=== PATIENT | female | born 2000 | race Two or more races ===

== ENCOUNTER 2023-02-23 15:40 | Inpatient (IN) | payer OTHER, SELFPAY ==
[~2023-02-23] VITALS: Ht 170.2 cm; Wt 83.6 kg
[2023-02-23] VITALS (7 sets, daily range): BP systolic 107–133; BP diastolic 51–72; O2SAT 97
[~2023-02-23 15:40] MED LIST: PRENATAL VITAMINS CHEWABLE TABLET PO SCH
[2023-02-23] MEDS ORDERED: TRANEXAMIC ACID INJection 1,000 MG in NS 100 ML IV PRN (16:20)
[2023-02-23] MEDS ORDERED: LIDOCAINE 1% MDV 20ML VIAL INFIL PRN (16:20)
[2023-02-23] MEDS ORDERED: OXYTOCIN DRIP 30 UNITS in IV 1 EA IV PRN ×4 (16:20)
[2023-02-23] MEDS ORDERED: METHYLERGONOVINE MALEATE 0.2MG/ML 1ML VIAL IM PRN (16:20)
[2023-02-23] MEDS ORDERED: PRENTAB9 PO (16:41)
[2023-02-23] MEDS ORDERED: OMEG10002 PO (16:41)
[2023-02-23] MEDS ORDERED: AZITHROMYCIN 250MG TABLET PO ONE (16:45)
[2023-02-23] MEDS ORDERED: HOME MED LIST COMPLETE! XX SCH (16:50)
[2023-02-23] MEDS ORDERED: BETAMETHASONE SOLUSPAN 6MG/ML 5ML VIAL IM SCH (17:00)
[2023-02-23] MEDS: AMPICILLIN SOD 2 GM in D5W MINI-BAG PLUS 100 ML IV SCH ×2 (17:58→23:44)
[2023-02-23] MEDS ORDERED: NIFEdipine 10 MG CAP PO SCH (18:00)
[2023-02-23] MEDS: LR 1,000 ML IV SCH ×2 (19:51→23:44)
[2023-02-23 19:54] LABS: HEMATOCRIT 33.6 % (36.0-47.0); HEMOGLOBIN 11.4 g/dl (12.0-15.5); MEAN CORPUSCULAR HEMOGLOBIN 32.5 pg (27.0-33.0); MEAN CORPUSCULAR HGB CONC 33.9 g/dl (32.0-36.5); MEAN CORPUSCULAR VOLUME 95.7 fl (80.0-96.0); PLATELET COUNT, AUTOMATED 147 10^3/uL (150-450); RED BLOOD COUNT 3.51 10^6/uL (4.00-5.40); WHITE BLOOD COUNT 9.7 10^3/uL (4.0-10.0)
[2023-02-23] MEDS: NIFEdipine 10 MG CAP PO SCH (21:20)
[2023-02-24] VITALS (14 sets, daily range): BP systolic 96–122; BP diastolic 51–71; O2SAT 93–100
[2023-02-24] MEDS: NIFEdipine 10 MG CAP PO SCH ×2 (02:05→05:52)
[2023-02-24] MEDS: LR 1,000 ML IV SCH (05:19)
[2023-02-24] MEDS: AMPICILLIN SOD 2 GM in D5W MINI-BAG PLUS 100 ML IV SCH (05:50)
[2023-02-24] MEDS ORDERED: BICITRA 30ML SOLN UDC PO ONE (07:00)
[2023-02-24] MEDS ORDERED: AZITHROMYCIN INJ 500 MG, VIAL MATE ADAPTER 1 EACH in NS 250 ML IV ONE (07:00)
[2023-02-24] MEDS ORDERED: ceFAZolin SOD 2 GM in IV 1 EA IV ONE (07:00)
[2023-02-24] MEDS ORDERED: MORPHINE PRES-FREE INJ 10 MG/10 ML VIAL As Ordered ONE (07:15)
[2023-02-24] MEDS ORDERED: OXYTOCIN 30UNITS IN 0.9% NaCl 500ML IV BAG As Ordered ONE ×3 (07:15→09:11)
[2023-02-24] MEDS ORDERED: fentaNYL 100 MCG/2 ML INJECTION As Ordered ONE (07:15)
[2023-02-24] MEDS ORDERED: ACETAMINOPHEN 1000MG 100ML IV BAG As Ordered ONE (07:31)
[2023-02-24] MEDS ORDERED: ONDANSETRON 4MG 2ML VIAL As Ordered ONE (07:34)
[2023-02-24] MEDS ORDERED: KETOROLAC 60MG 2ML VIAL As Ordered ONE (07:34)
[2023-02-24] MEDS ORDERED: OXYTOCIN INJ 10UNITS/ML 1ML VIAL As Ordered ONE (07:52)
[2023-02-24 08:30] LABS: CORD GAS ABE A -9.4; CORD GAS ABE V -0.4; CORD GAS HCO3 A 22.8 MMOL/L; CORD GAS O2 SAT A 78.1 %; CORD GAS PCO2 A 79.9 mmHg; CORD GAS PCO2 V 55.2 mmHg; CORD GAS PH A 7.074 UNITS; CORD GAS PH V 7.308 UNITS; CORD GAS PO2 A 45.6 mmHg; CORD GAS PO2 V 29.5 mmHg; CORD GAS SBC A 16.7 MMOL/L; CORD GAS SBC V 23.4 MMOL/L; CORD GAS TCO2 A 25.3 MMOL/L; CORD GAS TCO2 V 28.7 MMOL/L
[2023-02-24] MEDS ORDERED: ePHEDrine SULFATE 25 MG/5 ML(5MG/ML) SYRINGE As Ordered ONE (08:30)
[2023-02-24] MEDS ORDERED: PHENYLephrine 500MCG 5ML (100MCG/ML) SYRINGE As Ordered ONE (08:30)
[2023-02-24] MEDS ORDERED: diphenhydrAMINE 50MG/ML VIAL As Ordered ONE (08:36)
[2023-02-24] MEDS ORDERED: ONDANSETRON 4MG 2ML VIAL IV PRN ×2 (08:55→09:00)
[2023-02-24] MEDS ORDERED: OXYTOCIN DRIP 30 UNITS in IV 1 EA IV SCH (08:55)
[2023-02-24] MEDS ORDERED: RHOGAM 300MCG (1500IU) INJ IM SCH (08:55)
[2023-02-24] MEDS ORDERED: LR 1,000 ML IV SCH ×2 (08:55→09:00)
[2023-02-24] MEDS ORDERED: METOCLOPRAMIDE INJ 10MG/2ML VIAL IV PRN ×2 (08:55→09:00)
[2023-02-24] MEDS ORDERED: METHYLERGONOVINE MALEATE 0.2MG/ML 1ML VIAL IM PRN (08:55)
[2023-02-24] MEDS ORDERED: oxyCODONE 5MG TAB PO PRN ×3 (08:55→09:00)
[2023-02-24] MEDS ORDERED: SIMETHICONE 80MG CHEW TAB PO PRN (08:55)
[2023-02-24] MEDS ORDERED: PROMETHAZINE 25MG/ML 1ML VIAL IV PRN (09:00)
[2023-02-24] MEDS ORDERED: MORPHINE 2 MG/ML 1ML VIAL IV PRN (09:00)
[2023-02-24] MEDS ORDERED: NALOXONE INJ 0.4MG/1ML VIAL IV PRN ×2 (09:00)
[2023-02-24] MEDS ORDERED: fentaNYL 100 MCG/2 ML INJECTION IV PRN (09:00)
[2023-02-24] MEDS ORDERED: NALBUPHINE HCL 10 MG/ML 1ML AMP IV PRN (09:00)
[2023-02-24] MEDS ORDERED: **NOTE PATIENT COMMENT** MISC XX SCH (09:00)
[2023-02-24] MEDS ORDERED: diphenhydrAMINE 50MG/ML VIAL IV PRN (09:00)
[2023-02-24] MEDS: DOCUSATE SODIUM 100MG CAPSULE PO SCH ×2 (11:45→22:10)
[2023-02-24] MEDS: SLF 3 ML SYR IV SCH ×2 (11:45→17:09)
[2023-02-24] MEDS: PRENATAL VITAMINS CHEWABLE TABLET PO SCH (11:45)
[2023-02-24] MEDS: ACETAMINOPHEN 500 MG TAB PO SCH ×2 (13:32→19:44)
[2023-02-24] MEDS: KETOROLAC 30 MG/ML 1ML VIAL IV SCH ×2 (14:31→22:08)
[2023-02-25] VITALS (10 sets, daily range): BP systolic 93–127; BP diastolic 51–65; TEMP 97.6–98.3; O2SAT 95–100
[2023-02-25] MEDS: SLF 3 ML SYR IV SCH (01:44)
[2023-02-25] MEDS: ACETAMINOPHEN 500 MG TAB PO SCH ×4 (01:44→20:07)
[2023-02-25] MEDS: KETOROLAC 30 MG/ML 1ML VIAL IV SCH (03:57)
[2023-02-25 06:42] LABS: MEAN CORPUSCULAR HEMOGLOBIN 33.2 pg (27.0-33.0); MEAN CORPUSCULAR HGB CONC 33.9 g/dl (32.0-36.5); MEAN CORPUSCULAR VOLUME 97.9 fl (80.0-96.0); PLATELET COUNT, AUTOMATED 132 10^3/uL (150-450); RED BLOOD COUNT 2.35 10^6/uL (4.00-5.40); WHITE BLOOD COUNT 13.9 10^3/uL (4.0-10.0)
[2023-02-25 07:02] LABS: HEMOGLOBIN 7.8 g/dl (12.0-15.5)
[2023-02-25] MEDS: PRENATAL VITAMINS CHEWABLE TABLET PO SCH (08:30)
[2023-02-25] MEDS: DOCUSATE SODIUM 100MG CAPSULE PO SCH ×2 (08:30→20:06)
[2023-02-25] MEDS: IBUPROFEN 800 MG TAB PO SCH ×2 (10:57→18:12)
[2023-02-25] MEDS ORDERED: NS 1,000 ML IV SCH (12:25)
[2023-02-25 16:10] LABS: HEMATOCRIT 25.3 % (36.0-47.0); HEMOGLOBIN 8.6 g/dl (12.0-15.5); MEAN CORPUSCULAR HEMOGLOBIN 32.8 pg (27.0-33.0); MEAN CORPUSCULAR VOLUME 96.6 fl (80.0-96.0); PLATELET COUNT, AUTOMATED 132 10^3/uL (150-450); RED BLOOD COUNT 2.62 10^6/uL (4.00-5.40)
[2023-02-26 02:00] VITALS: BP 104/58; O2SAT 99
[2023-02-26] MEDS: IBUPROFEN 800 MG TAB PO SCH ×2 (02:21→12:01)
[2023-02-26] MEDS: ACETAMINOPHEN 500 MG TAB PO SCH ×3 (02:22→14:16)
[2023-02-26 06:00] VITALS: BP 124/72; O2SAT 99
[2023-02-26] MEDS: DOCUSATE SODIUM 100MG CAPSULE PO SCH (08:19)
[2023-02-26] MEDS: PRENATAL VITAMINS CHEWABLE TABLET PO SCH (08:19)
[2023-02-26] MEDS ORDERED: MEASLES,MUMPS,RUBELLA VACCINE INJ (MMR-II) SC.IMMUN ONE (09:00)
[2023-02-26] MEDS ORDERED: ACET-683 PO (09:47)
[2023-02-26] MEDS ORDERED: OXYC-517 PO (09:47)
[2023-02-26] MEDS ORDERED: IBUP80TA PO (09:47)
[2023-02-26] MEDS ORDERED: COLA100C5 PO (09:47)
[2023-02-26 10:00] VITALS: BP 113/57; O2SAT 97
== END 2023-02-26 14:20 | disposition home or self-care (01) | DRG 773 ==
LOC: M LDO 15:40 → M LDI 16:40 → M OBS 02-24 10:20
PROVIDERS: ADMIT Obstetrics & Gynecology; ATTEND Obstetrics & Gynecology
PROC: 10D00Z1 Extraction of Products of Conception, Low, Open Approach (ICD-10-PCS; principal; 2023-02-24 07:20)
DX: O32.2XX0 Maternal care for transverse and oblique lie, not applicable or unspecified (principal); Z3A.33 33 weeks gestation of pregnancy; O42.013 Preterm premature rupture of membranes, onset of labor within 24 hours of rupture, third trimester; Q51.28 Other and unspecified doubling of uterus; N83.8 Other noninflammatory disorders of ovary, fallopian tube and broad ligament; Z37.0 Single live birth; O26.893 Other specified pregnancy related conditions, third trimester; O34.593 Maternal care for other abnormalities of gravid uterus, third trimester